=== PATIENT | male | born 1965 | race Caucasian/White ===

== ENCOUNTER 2020-08-13 16:14 | Inpatient (IN) | payer BC, OTHER ==
[~2020-08-13] VITALS: Ht 172.7 cm; Wt 99.1 kg
[2020-08-13] MEDS: HEPARIN 25,000UTS/250ML PREMIX 250 ML IV PRN (16:00)
[2020-08-13] MEDS ORDERED: HEPARIN for IV BOLUS 10,000 UNIT/10 ML VIAL. IV PRN (16:30)
[2020-08-13] MEDS ORDERED: METO25TA2 PO (16:39)
[2020-08-13] MEDS ORDERED: ATOR40TA59 PO (16:39)
[2020-08-13] MEDS ORDERED: ASPI-886 PO (16:39)
--- NOTE | 2020-08-13 16:41 | PDOC2 ---
DEMARCUS ORTIZ BARREL DRAINER 08/13/20 1641: CARDIAC CONSULT DATE OF CONSULT Date of Consult DATE: 08/13/20 TIME: 16:26 REASON FOR CONSULT Reason for Consult: NSTEMI REFERRING PHYSICIAN Referring Physician: Miky SOURCE Source: Chart review, Patient HISTORY OF PRESENT ILLNESS HISTORY OF PRESENT ILLNESS This is a pleasant 54 yo male admitted for complains of chest pain. Reports that he was going to work when this happened felt like someone punch him in the chest that lingered on. He took ASA and eventually EMS gave 1 NTG. His CP started dissipating and currently CP free. He was at [facility] at first and noted with troponin at 0.1 without acuta EKG changes. He had 3 stents in 2011 and his boathouse keeper he saw last yr at [facility] and actually had a stress test last which he reports that it was ok. When he checks his BP at home it is normal. He takes metoprolol, ASA and statin. He continues to smoke tobacco and has GERONIMO but does not routinely uses his CPAP. No prior respiratory infections, no GERD symptoms, no recent fall or injury, no fever chills, no anosmia or ageusia. No prior covid-19 exposure but had his Moderna vaccine over a a month ago. Denies any nausea or vomiting, no palpitations diaphoresis or radiating discomfort. No exertional CP nor RODRIGEZ prior to this event. PAST MEDICAL HISTORY Cardiovascular: CAD, HTN, Hyperlipidemia Pulmonary: Other (GERONIMO) CENTRAL NERVOUS SYSTEM: Other (No pertinent history) GI: No pertinent hx Heme/Onc: No pertinent hx Hepatobiliary: No pertinent hx Psych: No pertinent hx Musculoskeletal: Osteoarthritis Rheumatologic: No pertinent hx Infectious disease: No pertinent hx ENT: No pertinent hx Renal/: No pertinent hx Endocrine: No pertinent hx Dermatology: No pertinent hx PAST SURGICAL HISTORY Past Surgical History: Arthroscopy (2 RTC repairs to right), Hernia Repair (right in 1967), Other (PCI with 3 stents in 2011) FAMILY HISTORY Family History: Coronary Artery Disease (father, mother, brother and sister) SOCIAL HISTORY Smoke: 1 pack per day (30 pk yr) ALCOHOL: none Drugs: None Lives: with Family ALLERGIES ALLERGIES: Coded Allergies: No Known Drug Allergies (Unverified , 08/13/20) ROS Review of System 14 point ROS evaluated with pertinent positives noted per HPI PHYSICAL EXAM General: Alert, Oriented X3, Cooperative, No acute distress HEENT: Atraumatic, Mucous membr. moist/pink Lungs: Clear to auscultation, Normal air movement Heart: Regular rate (SR), Normal S1, Normal S2, No murmurs Abdomen: Soft, No tenderness Extremities: No cyanosis, No edema Skin: No breakdown, No significant lesion Neuro: Normal speech, Sensation intact Psych/Mental Status: Mental status NL, Mood NL MUSCULOSKELETAL: Osteoarthritic changes both hands ASSESSMENT/PLAN ASSESSMENT/PLAN 1. NSTEMI 2. HTN: controlled 3. HLP 4. CAD: 3 stents in 2011 5. Tobacco abuse: 1 ppd, no plans on quitting 6. GERONIMO: noncompliant with CPAP Recommendations 1. Trend troponin, TSH, FLP. trend trop. Repeat EKG and obtain TTE tomorrow 2. Continue heparin drip. ASA. Restart home statin and toprol 3. Covid-19 swab. LHC tomorrow, risks and benefits discussed and agreeable to proceed. 4. Smoking cessation NAVEEN HERNDON MD 08/13/201818: CARDIAC CONSULT ASSESSMENT/PLAN ASSESSMENT/PLAN The patient was seen and interviewed as well as examined at the bedside. The chart was reviewed. The case was discussed. Agree with the plan of care. DEMARCUS ORTIZ APRN August 13, 2020 16:41 NAVEEN HERNDON MD August 13, 2020 18:19
--- NOTE | 2020-08-13 16:43 | EKG ---
[facility] [address] [place] [address] Test Date: 2020-08-13 Test Time: 16:38:26 Pat Name: CHANTEL DAY Department: Room: 256 1 Gender: M Meter Inspector: ANGELES : 1965 Requested By: DEMRACUS ORTIZ Order Number: [id number] Reading MD: Measurements Intervals [place] Rate: 64 P: 26 MI: 168 QRS: 81 QRSD: 108 T: 34 QT: 394 QTc: 410 Interpretive Statements SINUS RHYTHM NORMAL ECG RI6.02 No previous ECG available for comparison
[2020-08-13 19:00] VITALS: BP 129/74
[2020-08-13] MEDS ORDERED: ATORVASTATIN CALCIUM 40 MG TABLET. PO SCH (21:00)
--- NOTE | 2020-08-13 21:25 | NUR ---
changed patient metoprolol to , per patient request, patient takes all medications at HS.
[2020-08-13] MEDS ORDERED: METOPROLOL SUCC 24HR ER 50 MG TAB.ER.24H. PO SCH (21:30)
[2020-08-13 22:37] VITALS: BP 121/74
[2020-08-14] VITALS (12 sets, daily range): BP systolic 102–134; BP diastolic 55–87
[2020-08-14] MEDS: HEPARIN 25,000UTS/250ML PREMIX 250 ML IV PRN (06:35)
--- NOTE | 2020-08-14 06:39 | NUR ---
Pt agitated this AM states "these doctors need to hurry the F up. Im hangry, i need my coffee and a cigarette. They should have done this test yesterday and let me go home. Making someone go from Midnight until now (0635) is ridiculous, they need to hurry the F up". Will continue to monitor.
[2020-08-14] MEDS ORDERED: ASPIRIN ENTERIC COATED 81 MG TABLET.DR. PO SCH (08:00)
[2020-08-14] MEDS ORDERED: fentaNYL PF VIAL 100 MCG/2 ML VIAL ONE (08:33)
[2020-08-14] MEDS ORDERED: NITROGLYCERIN 200 MCG/2 ML SYRINGE FOR CATH/VASC LAB. ONE ×2 (08:34→09:56)
[2020-08-14] MEDS ORDERED: MIDAZOLAM HCL/PF 2 MG/2 ML VIAL. ONE (08:34)
[2020-08-14] MEDS ORDERED: VERAPAMIL 5 MG/2 ML VIAL. ONE (08:34)
[2020-08-14] MEDS ORDERED: HEPARIN for IV BOLUS 10,000 UNIT/10 ML VIAL. ONE (08:34)
[2020-08-14 08:43] LABS: CALCIUM 8.5 mg/dL (8.5-10.1); CREATININE 0.8 mg/dL (0.7-1.3); GFR 101.5; POTASSIUM 4.5 mmol/L (3.5-5.1)
[2020-08-14 08:44] LABS: CHOLESTEROL/HDL RATIO 3.9
[2020-08-14] MEDS ORDERED: METOPROLOL SUCC 24HR ER 50 MG TAB.ER.24H. PO SCH (09:00)
--- NOTE | 2020-08-14 09:13 | NUR ---
pt left at approx 0710 for echo. Pt retuirned from echo at approx 0800.
--- NOTE | 2020-08-14 09:14 | NUR ---
pt left for procedure at approx 0830. Consents sighned. vaccine record provided.
[2020-08-14] MEDS ORDERED: fentaNYL PF VIAL 100 MCG/2 ML VIAL IV ONE (09:15)
[2020-08-14] MEDS ORDERED: VERAPAMIL 5 MG/2 ML VIAL. IART ONE (09:15)
[2020-08-14] MEDS ORDERED: LIDOCAINE 1% Multi-Dose 20 ML VIAL. INJ ONE (09:15)
[2020-08-14] MEDS ORDERED: IODIXANOL 320 MG/ML 100 ML VIAL. IART ONE (09:15)
[2020-08-14] MEDS ORDERED: NITROGLYCERIN 200 MCG/2 ML SYRINGE FOR CATH/VASC LAB. IART ONE (09:15)
[2020-08-14] MEDS ORDERED: MIDAZOLAM HCL/PF 2 MG/2 ML VIAL. IV ONE (09:15)
[2020-08-14] MEDS ORDERED: HEPARIN for IV BOLUS 10,000 UNIT/10 ML VIAL. IART ONE (09:15)
[2020-08-14] MEDS ORDERED: IODIXANOL 320 MG/ML 100 ML VIAL. ONE (09:42)
[2020-08-14] MEDS ORDERED: LIDOCAINE 1% Multi-Dose 20 ML VIAL. ONE (09:42)
--- NOTE | 2020-08-14 09:50 | NUR ---
pt returned from heart cath at approx 0945. Frequent vital signs started. tr band assessed. no oozing noted. 11cc of air in band and armband in place.
[2020-08-14] MEDS ORDERED: CONTRAST GIVEN. MC PRN (10:45)
--- NOTE | 2020-08-14 10:51 | HP ---
ADMIT DATE: 08/13/2020 HISTORY OF PRESENT ILLNESS: The patient is a 54-year-old male patient, who presented to the Emergency Room at [facility] with chest pain. Reported he was going to work when this happened, felt like someone punched him in the chest, that lingered on. He took an aspirin and eventually EMS gave one nitroglycerin. His chest pain had started dissipating; and by the time he arrived to the [facility], his chest pain had completely resolved. He was at [facility]. At first, they noted that his troponin being at 0.1 without acute EKG changes. The patient has had 3 stents in 2012 and his airplane gas tank liner assembler saw him about a year ago at [facility] and had a stress test that was okay. When he checked his blood pressure at home, it was normal. He takes metoprolol, aspirin and statin. He apparently continues to smoke and has obstructive sleep apnea, but does not routinely use his CPAP. No prior respiratory infection or gastroesophageal reflux symptoms. No recent fall or injury. He was investigated in the Emergency Room, where he has had lab work, imaging studies and EKG. His first set of cardiac enzyme was 0.017, the second was 0.033 and the third one was 0.126. His prothrombin time, INR and APTT were normal. His CT abdomen, chest and pelvis showed no acute thoracic, abdominal or pelvic findings; hepatic steatosis; simple cyst within the right kidney; and prominent mediastinal lymph nodes, likely physiologic in etiology. Given the steady rise of his troponin, the patient was transferred to [facility] with a diagnosis of non-ST segment elevation myocardial infarction. PAST MEDICAL HISTORY: Significant for coronary artery disease, hypertension, hyperlipidemia, obstructive sleep apnea, generalized osteoarthritis. PAST SURGICAL HISTORY: Significant for: 1. Arthroscopy. 2. Right rotator cuff repair. 3. Hernia repair. 4. PCI with stent deployment in 2011. FAMILY HISTORY: Positive for coronary artery disease in mother, father, brother and sister. SOCIAL HISTORY: He apparently lives with his family. He smokes a pack a day, has been smoking for almost 30 years. Does not drink alcohol or recreational drugs. ALLERGIES: He has no known drug allergies. MEDICATIONS: He is currently on the following medications: Atorvastatin 80 mg at bedtime, metoprolol succinate 50 mg daily and aspirin 81 mg once a day. REVIEW OF SYSTEMS: As per history of present illness. PHYSICAL EXAMINATION: GENERAL: On arrival to the Emergency Room at [facility], he looked well and was clearly in no apparent respiratory distress. No pallor, jaundice or cyanosis. No thyromegaly. No jugular venous distention or limb edema. VITAL SIGNS: His heart rate was 70, blood pressure was 140/58, temperature was 98.1, respiratory rate was 16 and oxygen saturation was 94% on room air. HEAD, EYES, EARS, NOSE AND THROAT: Normocephalic, atraumatic. NECK: Supple. HEART: Showed normal first and second heart sounds. No gallop, rub or murmur. CHEST: Clear to auscultation. No crepitation or rhonchi. ABDOMEN: Distended, soft, nontender. NEUROLOGIC: He was grossly intact. LABORATORY DATA: His lab work on arrival showed a white cell count of 7600, hemoglobin 16, hematocrit 46, MCV 92 and platelet count 235,000 with normal manual differential. His prothrombin time, INR and APTT are normal. His chemistry showed a serum sodium of 142, potassium 4.4, chloride 107, bicarbonate 24, anion gap of 11, BUN 12, creatinine 0.9, estimated GFR was 88 mL per minute, his glucose was 141, calcium was 8.3, magnesium was 1.8. Total bilirubin, AST, ALT and alkaline phosphatase were normal. His beta-natriuretic peptide was 23. Total protein 6.2. Albumin was 3.4. His serum lipase was 146. His first set of troponin was 0.017, second was 0.033 and third one 0.126. ASSESSMENT AND PLAN: The patient therefore was transferred to [facility] with non-ST segment elevation myocardial infarction. He was apparently started on a heparin drip. We did consult the airplane gas tank liner assembler for further evaluation and treatment. YIFAN DR: Charlene TID: [id number]
--- NOTE | 2020-08-14 11:28 | CARD ---
MR#: [id number] Date of Study: 08/14/2020 Ordering Physician: DEMARCUS ORTIZ, Referring Physician: DEMARCUS ORTIZ, Tech: RT Kareem(R) APPROVED REPORT Technologist: Abby Krause RT(R) Nurse: Kylee Floyd RN Procedure(s) performed: MODERATE SEDATION TIME: 34 MINUTES FLUORO TIME: 4.8 MIN DOSE: 66.9 GYCM2 CONTRAST: 107CC VISI [facility] Clinical Frailty Scale [facility] Clinical Frailty Scale: Managing Well Heart Failure Heart Failure: No CASE TECHNIQUE IV conscious sedation was used throughout procedure with appropriate monitoring and was performed in the presence of a registered nurse who was an independent trained observer other than the physician p erforming the procedure. During this case, Fluoroscopy and low osmolar contrast were used for imaging . Specimen(s) Removed: N/A Estimated Blood loss: 15 cc's. PROCEDURE NARRATIVE Clinical information: 54 y.o male presenting with angina and elevated troponin. Informed consent: Written informed consent was obtained from the patient after adequate discussion of the risks and arelis efits of the procedure. Procedure details: ACCESS: The right wrist was prepped and draped in usual sterile fashion. Under 1% lidocaine local anesthesia a 6 [place] Terumo sheath was placed in the right radial artery via the Seldinger technique. DIAGNOSTIC ANGIOGRAPHY: Right and left coronary arteries were engaged with a 6 [place] TIG catheter. Diagnostic angiography i n multiple views were obtained. Next, a 6 [place] pigtail catheter was placed in the left ventricle a nd a LVEDP was measured. A pullback was performed after left ventriculography. All catheters were e xchanged over J-tip guidewire. FINDINGS: ======= Aorta: 110/80 LVEDP: 15 mmHg Left ventriculogram: Ejection fraction 45-50% Mild global hypokinesis. No signficant mitral or aortic insufficiency. Coronary angiography: LM: Large caliber vessel with normal angiographic appearance LAD: Large caliber vessel with patent proximal and mid stents. The remainder of the vessel has mild d iffuse luminal irregularities of up to 30%. D1: Small caliber vessel with normal angiographic appearance LCX: Moderate caliber non-dominant vessel with mild luminal irregularities OM1: Moderate caliber vessel with mild luminal irregularities. RCA: Moderate caliber dominal vessel with mild luminal irregularities of up to 30% and a distal eccen tric 50% stenosis. RPDA: Small caliber vessel with mild luminal irregularities. INTERVENTIONAL TECHNIQUE: iFR of the RCA Due to the patient's presenting symptoms, angiographic findings a physiologic assessment of the dista l RCA stenosis was performed. Heparin was used for anticoagulation. Through a 6 [place] JR4 guide ca theter a 0.014 inch pressure wire was advanced to the distal RCA after appropriate normalization and intracoronary nitroglycerin administration. And IFR was measured at 0.94. Pullback confirmed this v alue. Therefore further intervention was deferred. CLOSURE: At case completion the right radial sheath was removed and a Terumo radial band was applied with 11 m L of air. Hemostasis was achieved. COMPLICATIONS: No acute complications noted Conclusion 1. Normal left-sided filling pressures 2. Two-vessel coronary artery disease with patent stents in the LAD 3. Negative IFR of the RCA Recommendations Aggressive Medical Therapy Signed by : Bruce Rae, Electronically Approved : 08/14/2020 11:27:59
--- NOTE | 2020-08-14 11:44 | PDOC ---
MODERATE SEDATION ASSESSMENT RISKS/ALTERNATIVES Risks/Alternatives Risks and alternatives of this type of sedation and procedure discussed with: RISK/ALTERNATIVES: Patient H & P ON CHART H & P H & P on chart and reviewed for co-morbid conditions and appropriate labs. H&P ON CHART: Yes STATUS PREG STATUS ASSESSED: N/A MEDS/ALLERGIES REVIEWED Meds/Allergies Reviewed Medications and Allergies including time and route of recently administered narcotics and sedatives. MEDS/ALLERGIES REVIEWED: Yes ASA RATING ASA RATING: II AIRWAY ASSESSMENT Airway Assessment Airway patency, oral function limitations, presence of caps, crowns, dentures, partials, and ability to extend neck assessed. AIRWAY ASSESSMENT: Yes MALLAMPATI SCORE MALLAMPATI SCORE: II PRE-SEDATION ASSESSMENT PRE-SEDATION ASSESSMENT: Yes NAVEEN HERNDON MD August 14, 2020 11:44
--- NOTE | 2020-08-14 12:54 | NUR ---
SS following for discharge planning. SS reviewed pt chart and discussed with pt RN. Pt is from home and is currently on room air. Pt had heart cath today. Discharge plan is currently to home when medically ready. SS will continue to follow for discharge planning.
--- NOTE | 2020-08-14 15:18 | NUR ---
follow up appt for the pt with Dr Flores his cariologist. the pt states that Dr. Rae called with updates already. Education given to the pt multiple times through out the shift as to quiting smoking. pt reports he is not interested. educational material given. present and education given to her as well. Handout regarding angioplasty given to th ept as well with all limitations etc. no new scripts given. instruvted pt to continue taking home meds as was taking before.
--- NOTE | 2020-08-14 16:32 | CARD ---
MR#: [id number] Date of Study: 08/14/2020 Ordering Physician: DEMARCUS ORTIZ, Referring Physician: DEMARCUS ORTIZ Tech: Yolie Johnosn [facility] APPROVED REPORT EXAM: Two-dimensional and M-mode echocardiogram with Doppler and color Doppler. Other Information Quality : AverageHR: 61bpm Rhythm : NSR INDICATION Cardiac Disease: RISK FACTORS Hypertension Hyperlipidemia 2D DIMENSIONS RVDd3.4 (2.9-3.5cm)Left Atrium(2D)3.2 (1.6-4.0cm) IVSd1.0 (0.7-1.1cm)Aortic Root(2D)3.2 (2.0-3.7cm) LVDd4.6 (3.9-5.9cm)LVOT Diameter2.2 (1.8-2.4cm) PWd1.1 (0.7-1.1cm)LVDs3.2 (2.5-4.0cm) FS (%) 31.5 %SV58.9 ml LVEF(%)59.4 (>50%) Aortic Valve AoV Peak Alec.111.8cm/sAoV VTI24.2cm AO Peak GR.5.0mmHgLVOT Peak Alec.107.1cm/s AO Mean GR.2mmHgAVA (VMAX)3.59cm2 Mitral Valve MV E Krzxxrsy72.6cm/sMV DECEL [id number] MV A Tfzgpmfq63.7cm/sE/A Ratio1.0 Tricuspid Valve TR P. Bslxqzfi437ak/sTR Peak Gr.22mmHg LEFT VENTRICLE The left ventricle is normal size. There is normal left ventricular wall thickness. The left ventricu lar systolic function is normal. Estimated ejection fraction 55-60%. There is normal LV segmental wa ll motion. The left ventricular diastolic function and filling is normal for age. RIGHT VENTRICLE The right ventricle is normal size. There is normal right ventricular wall thickness. The right ventr icular systolic function is normal. ATRIA The left atrium size is normal. The right atrium size is normal. The interatrial septum is intact wit h no evidence for an atrial septal defect or patent foramen ovale as noted on 2-D or Doppler imaging. AORTIC VALVE The aortic valve is normal in structure and function. Doppler and Color Flow revealed no significant aortic regurgitation. There is no significant aortic valvular stenosis. MITRAL VALVE The mitral valve is normal in structure and function. There is no evidence of mitral valve prolapse. There is no mitral valve stenosis. Doppler and Color-flow revealed trace mitral regurgitation. TRICUSPID VALVE The tricuspid valve is normal in structure and function. Doppler and Color Flow revealed trace tricus pid regurgitation. Estimated PAP 25 mmHg. There is no tricuspid valve stenosis. PULMONIC VALVE The pulmonary valve is normal in structure and function. Doppler and Color Flow revealed no pulmonic valvular regurgitation. GREAT VESSELS The aortic root is normal in size. The ascending aorta is normal in size. The IVC is normal in size a nd collapses >50% with inspiration. PERICARDIAL EFFUSION There is no evidence of significant pericardial effusion. Critical Notification Critical Value: No <Conclusion> The left ventricular systolic function is normal. Estimated ejection fraction 55-60%. There is normal LV segmental wall motion. Trace mitral regurgitation. Trace tricuspid regurgitation. Estimated PAP 25 mmHg. There is no evidence of significant pericardial effusion. Signed by : Domo Avilez, Electronically Approved : 08/14/2020 16:32:09
== END 2020-08-14 19:27 | disposition home or self-care (01) | DRG 282 ==
LOC: 2 SOUTH 16:24
PROVIDERS: ADMIT Internal Medicine; ATTEND Internal Medicine
PROC: 4A023N7 Measurement of Cardiac Sampling and Pressure, Left Heart, Percutaneous Approach (ICD-10-PCS; principal; 2020-08-14)
PROC: B211YZZ Fluoroscopy of Multiple Coronary Arteries using Other Contrast (ICD-10-PCS; 2020-08-14)
PROC: B215YZZ Fluoroscopy of Left Heart using Other Contrast (ICD-10-PCS; 2020-08-14)
PROC: 4A033BC Measurement of Arterial Pressure, Coronary, Percutaneous Approach (ICD-10-PCS; 2020-08-14)
PROC: 5A09357 Assistance with Respiratory Ventilation, Less than 24 Consecutive Hours, Continuous Positive Airway Pressure (ICD-10-PCS; 2020-08-14)
DX: I21.4 Non-ST elevation (NSTEMI) myocardial infarction (principal); E78.5 Hyperlipidemia, unspecified; F17.210 Nicotine dependence, cigarettes, uncomplicated; G47.33 Obstructive sleep apnea (adult) (pediatric); I10 Essential (primary) hypertension; I25.119 Atherosclerotic heart disease of native coronary artery with unspecified angina pectoris; M15.9 Polyosteoarthritis, unspecified; Z82.49 Family history of ischemic heart disease and other diseases of the circulatory system; Z91.19 Patient's noncompliance with other medical treatment and regimen; Z95.5 Presence of coronary angioplasty implant and graft
CPT/HCPCS: 36415; 80048; 80061; 83690; 84443; 84484; 85520; 93005; 93306; 93458; 93571; 99152; 99153; C1769; J1644; J2250; J3010; J3490; Q9967; G0378